=== PATIENT | male | born 1975 | race American Indian/Alaskan Native ===

== ENCOUNTER 2017-06-12 18:06 | Emergency (ER) | payer SELFPAY ==
[2017-06-12 18:14] VITALS: BP 136/92
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
== END 2017-06-12 21:43 | disposition home or self-care (01) ==
LOC: ED 18:06
DX: M54.89 Other dorsalgia (principal); F17.200 Nicotine dependence, unspecified, uncomplicated; V89.2XXA Person injured in unspecified motor-vehicle accident, traffic, initial encounter; Y93.89 Activity, other specified; Y99.8 Other external cause status; Y92.410 Unspecified street and highway as the place of occurrence of the external cause
CPT/HCPCS: 99282